=== PATIENT | female | born 2000 | race Caucasian/White ===

== ENCOUNTER 2023-12-22 12:35 | Emergency (ER) | payer MEDICAID ==
[~2023-12-22] VITALS: Ht 175.3 cm; Wt 59.0 kg
[2023-12-22 12:47] VITALS: BP 99/64; PULSE 107; RESP 20; TEMP 98.5; O2SAT 98
[2023-12-22 13:00] VITALS: O2SAT 98
--- NOTE | 2023-12-22 13:00 | NUR ---
PT AMB TO BED 2
--- NOTE | 2023-12-22 13:03 | NUR ---
MD CASTRO AT BEDSIDE FOR EVALUATION
--- NOTE | 2023-12-22 13:25 | NUR ---
23YO FEMALE PT C/O N/V/D(+blood) AND GEN WEAKNESS X1DAY. REPORT SUDDEN ONSETS AND NOTING STREAKS OF BRIGHT RED BLOOD. ABD NON TENDER OR DISTENDED. DENIES CHEST PAIN, FEVER, CHILLS, CHANGE IN DIET OR RELIEF AFTER ZOFRAN. PT AAOX4, NAD. ON [employer]. BED AT LOWEST POSITION, BED RAILS UPX2. CALL LIGHT WITHIN REACH. HX: DENIES NKA
[2023-12-22 13:29] LABS: APPEARANCE,URINE CLEAR (CLEAR); BILIRUBIN,URINE 1+ (NEGATIVE); BLOOD, URINE NEGATIVE (NEGATIVE); COLOR,URINE YELLOW (YELLOW); LEUKOCYTE ESTERASE ,URINE NEGATIVE (NEGATIVE); NITRITE, URINE NEGATIVE (NEGATIVE); PH,URINE 6.5 (5.0-9.0); PROTEIN,URINE TRACE (NEGATIVE); UGLUCOSE NEGATIVE (NEGATIVE); UROBILINOGEN,URINE 0.2 EU/dL (0.2 - 1)
[2023-12-22 13:33] LABS: ICTOTEST NEGATIVE (NEGATIVE)
[2023-12-22] MEDS: NACL 0.9% 1,000 ML IV ONE (13:42)
[2023-12-22 13:43] LABS: BASOPHILS % (AUTO) 0.2 % (0.0-2.0); EOSINOPHILS % (AUTO) 0.1 % (0.0-4.0); HEMATOCRIT 43.1 % (36-48); HEMOGLOBIN 14.3 g/dL (12.0-16.0); LYMPHOCYTES # (AUTO) 0.4 K/uL (2.5-16.5); LYMPHOCYTES % (AUTO) 6.1 % (20.5-51.1); MEAN CORPUSCULAR HEMOGLOBIN 29 pg (27-31); MEAN CORPUSCULAR HGB CONC 33 g/dL (33-37); MEAN CORPUSCULAR VOLUME 86.6 fL (80-94); MONOCYTES # (AUTO) 0.4 K/uL (0.8-1.0); MONOCYTES % (AUTO) 6.1 % (1.7-9.3); NEUTROPHILS % (AUTO) 87.5 % (42.2-75.2); PLATELET COUNT (AUTO) 261 K/uL (140-450); RED BLOOD CELL COUNT(AUTO) 4.98 MIL/uL (4.20-5.40); RED CELL DISTRIBUTION WIDTH 13.4 % (11.6-13.7); WHITE BLOOD COUNT (AUTO) 6.9 K/uL (4.8-10.8)
[2023-12-22 13:50] LABS: ANION GAP 12.5 (8-16); CALCIUM 8.8 mg/dL (8.5-10.1); CARBON DIOXIDE 24.8 mmol/L (21-32); CREATININE 0.9 mg/dL (0.6-1.3); POTASSIUM 3.3 mmol/L (3.5-5.1)
[2023-12-22] MEDS: KETOROLAC 30 MG/ML VIAL IVP ONE (13:52)
[2023-12-22] MEDS: ONDANSETRON 4 MG/2 ML VIAL IVP ONE (13:53)
[2023-12-22 14:11] LABS: ALBUMIN 3.8 g/dL (3.4-5.0); BILIRUBIN,DIRECT 0.3 mg/dL (0.0-0.3); TOTAL BILIRUBIN 1.2 mg/dL (0.0-1.0); TOTAL PROTEIN, SERUM 7.1 g/dL (6.4-8.2)
[2023-12-22 14:20] LABS: FLU A ANTIGEN negative (NEGATIVE); FLU B ANTIGEN negative (NEGATIVE)
[2023-12-22] MEDS ORDERED: AZIT500T8 PO (14:37)
[2023-12-22] MEDS ORDERED: ONDA-188 PO (14:37)
[2023-12-22] MEDS: ACETAMINOPHEN EXTRA STRENGTH 500 MG TAB PO ONE (14:37)
--- NOTE | 2023-12-22 14:55 | NUR ---
Patient discharged with v/s stable. Written and verbal after care instructions given FOR VIRAL GASTRONTERITIS Patient alert, oriented and verbalized understanding of instructions. Ambulatory with steady gait. All questions addressed prior to discharge. ID band removed. Patient advised to follow up with PMD. Rx of AZITHROMYCIN,ZOFRAN given. Opportunity to ask questions provided and answered. WORK NOTE PROVIDED
--- NOTE | 2023-12-22 15:00 | NUR ---
Chart checked and completed. The patient's care was reviewed and supervised by JAYY ECKERT RN.
== END 2023-12-22 14:55 | disposition home or self-care (01) ==
LOC: MED 12:35
DX: K52.9 Noninfective gastroenteritis and colitis, unspecified (principal); Z20.822 Contact with and (suspected) exposure to COVID-19; R07.9 Chest pain, unspecified; M54.9 Dorsalgia, unspecified; R06.02 Shortness of breath; Z79.899 Other long term (current) drug therapy
CPT/HCPCS: 36415; 80048; 80076; 81003; 81025; 83690; 85025; 87426; 87804; 96361; 96374; 96375; 99284; J1885; J2405; J7030